=== PATIENT | female | born 1990 | race Caucasian/White ===

== ENCOUNTER → 2017-04-18 | Day surgery (SDC) | payer OTHER ==
[~2017-04-18] VITALS: Ht 160 cm; Wt 77.1 kg
== END | disposition home or self-care (01) ==
LOC: FAS 12:20
DX: K80.10 Calculus of gallbladder with chronic cholecystitis without obstruction (principal); J45.909 Unspecified asthma, uncomplicated; Z83.3 Family history of diabetes mellitus; Z79.899 Other long term (current) drug therapy; Z98.890 Other specified postprocedural states
CPT/HCPCS: 84703; 88304; J1170; J2405; J2704; J3010

== ENCOUNTER 2022-01-05 11:53 | Emergency (ER) | payer OTHER ==
[2022-01-05 15:04] LABS: BILIRUBIN NEGATIVE (NEGATIVE); BLOOD 1+ Ery/uL (NEGATIVE); CLARITY CLEAR (CLEAR); COLOR YELLOW (YELLOW); GLUCOSE (U) NORMAL (NORMAL); LEUKOCYTES NEGATIVE Leu/uL (NEGATIVE); NITRITE NEGATIVE (NEGATIVE); PROTEIN NEGATIVE (NEGATIVE)
[2022-01-05 15:07] LABS: BASOPHIL 0.6 % (0-2); EOSINOPHIL 1.6 % (0-5); HCT 45.5 % (37.0-47.0); HGB 15.1 g/dl (12.5-16.0); MCH 27.3 pg (25.0-31.0); MCHC 33.2 g/dL (32.0-36.0); MCV 82.1 fL (78.0-100.0); MONOCYTE 7.7 % (0-12); MPV 8.6 fL (6.0-9.5); NEUTROPHIL 63.4 % (41-80); NRBC 0; PLT 344 K/uL (150-400); RBC 5.54 M/uL (4.20-5.40); RDW 13.8 % (11.5-14.0)
[2022-01-05 15:08] LABS: LYMPHOCYTE 26.4 % (15-48)
[2022-01-05 15:15] LABS: BACTERIA TRACE; SQUAMOUS EPITHELIAL CELLS RARE
[2022-01-05 15:25] LABS: ALBUMIN 3.5 g/dL (3.4-5.0); BILIRUBIN - TOTAL 0.5 mg/dL (0.2-1.0); BUN/CREAT RATIO (CALC) 10.5 RATIO; CREATININE 0.57 mg/dL (0.51-0.95); GLOBULIN (CALCULATION) 5.2 g/dL; POTASSIUM 3.4 mmol/L (3.5-5.1); TOTAL PROTEIN 8.7 g/dL (6.4-8.2)
[2022-01-05 17:02] LABS: AMYLASE 30 U/L (25-115); LIPASE 66 U/L (73-393)
== END 2022-01-05 18:27 | disposition home or self-care (01) ==
LOC: FER 11:53
PROVIDERS: Nurse Practitioner Family
DX: R52 Pain, unspecified (principal); R74.01 Elevation of levels of liver transaminase levels
CPT/HCPCS: 36415; 80053; 81001; 82150; 83690; 85025; J7030; Q9967